=== PATIENT | female | born 1980 | race Caucasian/White ===

== ENCOUNTER 2019-07-30 15:08 | Outpatient (CLI) | payer BC ==
[2019-07-30 16:04] LABS: Hemoglobin 12.1 g/dL (12.0-16.0); Mean Corpuscular HGB CONC 32.5 g/dL (32.0-36.0); Mean Corpuscular Hemoglobin 29.6 pg (27.0-31.0); Mean Corpuscular Volume 91.2 fL (78.0-98.0); Mean Platelet Volume 7.3 fL (7.4-10.4); Platelet Count 376 thou/uL (130-400); RBC Distribution Width 12.9 % (11.5-14.5); Red Blood Cell (RBC) Count 4.07 mill/uL (4.20-5.40)
[2019-07-30 16:09] LABS: BHCG - Serum Negative (NEGATIVE); Pregs Control Background? CLEAR/WHITE (CLR/WHITE); Pregs Control Bar Appear? YES (CONTROL BAR)
== END 2019-07-30 15:09 | disposition home or self-care (01) ==
LOC: LABBT 15:08
PROVIDERS: ATTEND Obstetrics & Gynecology
DX: Z01.812 Encounter for preprocedural laboratory examination (principal); Z15.09 Genetic susceptibility to other malignant neoplasm
CPT/HCPCS: 84703; 85027

== ENCOUNTER 2019-08-10 05:47 | Day surgery (SDC) | payer BC ==
[2019-07-30 15:30] VITALS: BMI 44.6
--- NOTE | 2019-07-31 08:28 | HP ---
She is scheduled for surgery on 08/10/2019. HISTORY OF PRESENT ILLNESS: Ms. Zaidi is a 39-year-old white female, G0 with some history of BRCA1 carrier status. She has a significant family history of her mother having both breast and ovarian cancer. She has also had recent bilateral prophylactic mastectomies with TRAM flaps in early April. She also has a long history of PCOS with chronic anovulation issues. She does not desire fertility. She is not sexually active. Pap and HPV in 2016 were normal. PAST MEDICAL HISTORY: As per HPI. PAST SURGICAL HISTORY: Noted bilateral mastectomies, prophylactic with reconstruction. SOCIAL HISTORY: Nonsmoker. No excessive alcohol use. FAMILY HISTORY: Of note, mother with both breast and ovarian cancer and diabetes. Maternal grandmother with breast cancer. Maternal aunt with breast cancer. ALLERGIES: SHE HAS NO KNOWN DRUG ALLERGIES. PHYSICAL EXAMINATION: VITAL SIGNS: Height 5 feet 7 inches, weight 286 pounds with a BMI of 44.8, blood pressure 116/72, pulse 79, respirations 18, and O2 saturation on room air 98%. HEENT: Within normal limits. CHEST: Clear to auscultation. HEART: Regular rate and rhythm. S1 and S2 heart sounds. No murmurs, rubs, or gallops. Chest areas show well-healed healing TRAM flap areas with mastectomies noted. 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 PELVIC: Vulva and vagina had no lesions. Cervix had no lesions. Uterus, small and nontender. Adnexa, nontender with no masses. ASSESSMENT: This is a 39-year-old white female, G0 with BRCA1 positive carrier status and family history of both breast and ovarian cancer. Also long-standing history of polycystic ovary syndrome with anovulation concerns for increased risk of uterine cancer. The patient is desiring definitive surgical therapy including hysterectomy. We will proceed with robotic total laparoscopic hysterectomy and bilateral salpingo-oophorectomy, which is scheduled for 08/10/2019. Risks and benefits of procedure have been discussed in detail. Job ID: [id number]
[2019-08-10] MEDS ORDERED: Gabapentin 300 MG CAP ONE (06:24)
[2019-08-10] MEDS ORDERED: CeleCOXIB 100 MG CAP ONE (06:25)
[2019-08-10] MEDS ORDERED: Famotidine/PF 20 mg/2ml Vial ONE (06:25)
[2019-08-10] MEDS ORDERED: HYDROmorphone 2 MG/ML VIAL ONE (06:49)
[2019-08-10] MEDS ORDERED: Fentanyl 100 MCG/2 ML VIAL ONE ×2 (06:49→10:14)
[2019-08-10] MEDS ORDERED: Bupivacaine HCl 0.5%/Epinephrine 1:200,000/PF 30 ml Vial ONE (06:55)
[2019-08-10] MEDS ORDERED: Midazolam HCl 2 mg/2 ml Vial ONE (07:22)
[2019-08-10] MEDS ORDERED: Bisacodyl 10 MG SUPP PR PRN (09:34)
[2019-08-10] MEDS ORDERED: Promethazine HCl 25 MG/ML VIAL IM PRN ×2 (09:34→09:56)
[2019-08-10] MEDS ORDERED: diphenhydrAMINE 25 MG CAP PO PRN (09:34)
[2019-08-10] MEDS ORDERED: Zolpidem Tartrate 5 MG TAB PO PRN (09:34)
[2019-08-10] MEDS ORDERED: Ondansetron PF 4 MG/2 ML Vial IVP PRN (09:34)
[2019-08-10] MEDS ORDERED: traMADol HCl 50 MG TAB PO PRN ×2 (09:34)
[2019-08-10] MEDS ORDERED: Simethicone Chewable 80 MG TAB PO PRN (09:34)
[2019-08-10] MEDS ORDERED: Morphine 4 MG/ML VIAL SLOW IVP PRN (09:34)
[2019-08-10] MEDS ORDERED: Meperidine HCl/PF 25 MG/ML VIAL SLOW IVP PRN (09:56)
[2019-08-10] MEDS ORDERED: Ondansetron HCl/PF 4 MG/2 ML Vial IVP PRN (09:56)
[2019-08-10] MEDS ORDERED: Ketorolac Tromethamine 30 MG/ML VIAL IVP PRN (09:56)
[2019-08-10] MEDS ORDERED: Promethazine HCl 25 MG/ML VIAL SLOW IVP PRN (09:56)
[2019-08-10] MEDS ORDERED: HYDROmorphone 2 MG/ML VIAL SLOW IVP PRN (09:56)
--- NOTE | 2019-08-10 13:50 | OP ---
DATE OF PROCEDURE: 08/10/2019 PREOPERATIVE DIAGNOSES: 1. A 39-year-old white female, G0 with BRCA-1 positive carrier status. 2. Long history of polycystic ovary syndrome. POSTOPERATIVE DIAGNOSES: 1. A 39-year-old white female, G0 with BRCA-1 positive carrier status. 2. Long history of polycystic ovary syndrome. PROCEDURE PERFORMED: Prophylactic robotic total abdominal hysterectomy with bilateral salpingo-oophorectomy. CLOTH DESIZING RANGE OPERATOR CHIEF SURGEON: Suly Ambriz PA-C ANESTHESIA: General endotracheal. ESTIMATED BLOOD LOSS: 50 mL. COMPLICATIONS: None. COUNTS: Correct x2. ANTIBIOTICS: 2 g Ancef, on-call to the OR. FINDINGS: 1. Normal-appearing bilateral fallopian tubes, ovaries, and uterus. 2. Bladder was watertight to fluid distention of greater than 300 mL postprocedure with clear urine draining. 3. Bilateral ureteral peristalsis visualized postprocedure. DISPOSITION: To recovery room, stable. DESCRIPTION OF PROCEDURE: The patient previously received informed consent in regard to surgery. She was taken back to the operating room, where she received a general endotracheal anesthetic agent without complications. She was placed in the dorsal lithotomy position with the use of Gabo stirrups and prepped and draped in usual sterile fashion. Willett catheter was placed at this time. A side-arm speculum was placed in the vagina. The anterior lip of the cervix was grasped with a single-tooth tenaculum. The uterus sounded to 8 cm. A size 8-cm CARLOS uterine manipulator was selected with a 3.0-cm cervical cup. This was placed in usual fashion. Attention was then turned to the abdomen, where perspective trocar sites were infiltrated with 0.5% Marcaine with epinephrine. A 12-mm supraumbilical incision was made. Then, the Veress needle was entered into the abdominal cavity and the patient's pressure was noted to be less than 5 mm and the abdomen was insufflated with the patient's pressure of approximately 18 on approximately 3.5 L of carbon dioxide gas. A size 12 mm extra long trocar was then placed in the supraumbilical incision and then the patient's distension pressure was brought down to 15 mm of pressure. The laparoscope was introduced through the trocar sleeve confirming proper entry. Additional bilateral lower quadrant 8-mm laparoscopic trocars were placed along with the right upper quadrant 11-mm career services assistant port. The patient was placed in Trendelenburg and docked in usual fashion. I then proceeded to break scrub and carry out the procedure from the operative console while my assistants remained at the bedside. The ophthalmic surgical assistant elevated the uterus from the pelvis. Bilateral fallopian tubes and ovaries were identified. The left infundibulopelvic ligament was grasped with bipolar fenestrated cautery. It was coagulated, hugging close to the ovary. Prior to this, pelvic washings were sent and these were sent for Costello cytology. The left IP ligament was coagulated and transected with monopolar scissors. Serial coagulation hugging close to the uterus was carried out with bipolar fenestrated cautery until the left round ligament was reached, it was coagulated and transected. The anterior leaf of the broad ligament was entered. The vesicouterine peritoneum was then incised in layering technique dropping the bladder past the cervical vaginal margin, which was visualized from the indention of the CARLOS uterine manipulator cervical cup. The uterine vessels on the left side were skeletonized in layering technique and then they were coagulated in the internal cervical os region. The position of the ureter was noted at all times to be lateral and inferior to the operative site. This was then repeated on the right side, where again my career services assistant grasped the right fallopian tube. The right IP ligament was coagulated, hugging close to the ovary and this was transected. Serial coagulation of broad ligament was coagulated and transected until the right round ligament was reached. It was coagulated and transected. Again, the anterior leaf of the broad ligament was entered. The vesicouterine peritoneum was incised in layering technique both sharply and bluntly, dropping the bladder past the cervical vaginal angle. The bladder was distended again noting it down in its position and noting it to be intact. Again, the uterine vessels were skeletonized on the right side in a layering technique and then coagulated in the internal cervical os region. The location of the ureter on the right side was also noted to be lateral and inferior to the operative sites. We then proceeded to start the posterior colpotomy as this was readily accessible and this was carried out from 6 o'clock to 3 o'clock and 6 o'clock to 9 o'clock position and then the uterus was manipulated exposing the anterior cervix, where it was coagulated from 12 o'clock to 3 o'clock and 12 o'clock to 9 o'clock position. The uterine specimen was delivered into the vaginal vault. I switched out the monopolar scissor with a Yakov needle intermodal owner operator truck driver and this allowed me to run the cuff and coagulated any areas of oozing with bipolar fenestrated cautery. My career services assistant then brought in a Stratafix suture and then we closed the vaginal cuff in full-thickness closure and starting from the right angle back to the left angle and then back towards the right angle in double layer. Good hemostasis was confirmed. The pelvis was then irrigated again. Bilateral ureteral peristalsis was visualized. All pedicle sites were noted to be hemostatic. The vaginal vault was inspected by my career services assistant in a sponge stick and it was noted to be hemostatic vaginally. We then disconnected the robot and then I rescrubbed and we then closed the fascial defect at the supraumbilical area with [id number] stitches of 0 Vicryl and then the remainder of the trocar sites were closed with 4-0 Monocryl in subcuticular fashion along with Dermabond. Willett catheter was draining clear urine. The patient was awakened from anesthesia and transferred to recovery room in stable condition. Job ID: [id number]
[2019-08-10] MEDS: Acetaminophen 1,000 MG in Premix Bag 1 BAG IVPB SCH ×2 (14:52→17:04)
[2019-08-10] MEDS: Ketorolac Tromethamine 30 MG/ML VIAL IVP SCH ×2 (14:53→17:05)
[2019-08-10] MEDS: Sodium Chloride 0.9% 1,000 ML IV SCH ×3 (14:53→23:19)
[2019-08-11] MEDS: Ketorolac Tromethamine 30 MG/ML VIAL IVP SCH (00:56)
[2019-08-11] MEDS: Acetaminophen 1,000 MG in Premix Bag 1 BAG IVPB SCH (00:58)
[2019-08-11] MEDS ORDERED: Ibuprofen 800 MG TAB PO SCH (06:00)
[2019-08-11 06:27] LABS: Hemoglobin 11.4 g/dL (12.0-16.0); Mean Corpuscular HGB CONC 33.4 g/dL (32.0-36.0); Mean Corpuscular Hemoglobin 30.3 pg (27.0-31.0); Mean Corpuscular Volume 90.7 fL (78.0-98.0); Mean Platelet Volume 7.7 fL (7.4-10.4); Platelet Count 345 thou/uL (130-400); Red Blood Cell (RBC) Count 3.78 mill/uL (4.20-5.40); White Blood Cell (WBC) Count 16.4 thou/uL (4.8-10.8)
[2019-08-11 07:46] VITALS: BP 111/58; TEMP 97.8
--- NOTE | 2019-08-11 08:17 | PDOC.EVN ---
Event Note - Event Note Event Note: Tolerating diet. Ambulating and voiding. Good pain control. O:AFVSS HCT 34% abdOMEN IS SOFT. tROCHAR SITES CLEAN AND DRY. A/P:DOING WELL POST OP DAY 1 FROM ROBOTIC TLH/BSO. DISCHARGE HOME. IBUPROFEN AND TYLENOL PRN PAUN. F/U 2 AND 6 WEEKS .PATHOLOGY PENDING.
--- NOTE | 2019-08-11 11:23 | DIS ---
DATE OF ADMISSION: 08/10/2019 DATE OF DISCHARGE: 08/11/2019 DIAGNOSIS: 1. Genetic carrier for breast and ovarian cancer, gene mutation - BRCA1. 2. Long history of polycystic ovary syndrome with irregular menstrual cycles. PROCEDURE PERFORMED: Prophylactic robotic total laparoscopic hysterectomy and bilateral salpingo-oophorectomy. SUMMARY OF HOSPITAL COURSE: Ms. Zaidi is a 39-year-old white female with known BRCA1 carrier mutation, who has recently had completion of bilateral mastectomy with breast reconstruction for prophylactic therapy. She also desired prophylactic therapy with removal of her ovaries along with her uterus due to her regular menstrual bleeding and PCOS history. She underwent the robotic TLH-BSO on 08/10. Postoperatively, the patient has done well. She is ambulating, voiding, and tolerating diet the day of her surgery. Vital signs have remained stable. Hematocrit on postop day 1 is appropriate at 34%. She is having adequate pain control on IV Tylenol and Toradol. She was discharged on postop day #1 with [id number] ibuprofen and acetaminophen as directed. She has a followup in 2 and 6 weeks postop and pathology is pending at the time of this discharge. Job ID: [id number]
== END 2019-08-11 09:25 | disposition home or self-care (01) ==
LOC: SDC 05:47 → 3SE 11:01 → SDC 08-11 09:25
PROVIDERS: ATTEND Obstetrics & Gynecology
DX: E28.2 Polycystic ovarian syndrome (principal); N83.02 Follicular cyst of left ovary; N83.01 Follicular cyst of right ovary; E66.01 Morbid (severe) obesity due to excess calories; Z68.41 Body mass index [BMI] 40.0-44.9, adult; Z15.01 Genetic susceptibility to malignant neoplasm of breast; Z80.3 Family history of malignant neoplasm of breast; Z80.41 Family history of malignant neoplasm of ovary; Z90.13 Acquired absence of bilateral breasts and nipples
CPT/HCPCS: 36415; 85027; 86850; 86900; 86901; 88307; J0131; J0670; J0690; J1170; J1885; J2250; J3010; S0028